=== PATIENT | female | born 2000 | race Caucasian/White ===

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

== ENCOUNTER 2020-07-23 23:51 | Emergency (ER) | payer SELFPAY ==
[2020-07-24 00:12] VITALS: BP 148/95; TEMP 97.5; O2SAT 99
--- NOTE | 2020-07-24 00:30 | ED.PDOC ---
History of Present Illness - General Chief Complaint: General Time Seen by Provider: 07/24/20 00:21 Source: patient Exam Limitations: other - PATIENT UNCOOPERATIVE WITH EXAM, OBVIOUSLY TRYING TO CREAT FALSE FINDINGS ON EXAM, ONE MOMENT ACTING ATAXIC AND ANOTHER HAVING NO DIFFICULTY AT ALL WITH BALANCE. UNCOOPERATIVE WITH EXAM AND ADMITS TO EXAGERATION OF HER SYMPTOMS. - History of Present Illness Timing/Duration: episodic, waxing and waning Allergies/Adverse Reactions: Allergies Aspirin Allergy (Verified 10/01/19 00:44) Home Medications: Ambulatory Orders NK 10/01/19 Review of Systems - Review of Systems Review of Systems: 07/24/20 00:37 GENERALLY POSITIVE ROS, UNRELIABLE. Past Medical History (General) - Patient Medical History Hx Seizures: No Hx Stroke: No Hx Dementia: No Hx Asthma: No Hx of COPD: No Hx Cardiac Disorders: No Hx Congestive Heart Failure: No Hx Pacemaker: No Hx Hypertension: No Hx Thyroid Disease: No Hx Diabetes: No Hx Gastroesophageal Reflux: No Hx Renal Disease: No Hx of HIV: No Hx MRSA: No - Vaccination History Hx Tetanus, Diphtheria Vaccination: No Hx Influenza Vaccination: No Hx Pneumococcal Vaccination: No Immunizations Up to Date: No - Social History Hx Tobacco Use: No Hx Alcohol Use: No Hx Substance Use: No Hx Substance Use Treatment: No Hx Depression: Yes - Female History Patient : - unknown Family Medical History - Family History Father Family History: Unknown Physical Exam - Physical Exam General Appearance: Alert, No apparent distress, Obese, Well Developed, Well Groomed, Well Hydrated, Well Nourished Eye Exam: bilateral normal, bilateral abnormal EOM, bilateral abnormal pupil, bilateral conjunctivae pale, bilateral scleral icterus, bilateral other ENT Exam: normal ENT inspection, hearing grossly normal, pharynx normal Neck: non-tender, full range of motion, supple, normal inspection, trachea midline, limited range of motion Respiratory: chest non-tender, lungs clear, normal breath sounds, no respiratory distress Cardiovascular/Chest: normal peripheral pulses, regular rate, rhythm, no edema, no gallop, no JVD, no murmur Gastrointestinal/Abdominal: non tender, soft, no organomegaly 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 Copy, Patient Portal Self Enrollment Instructions: Generalized Anxiety Disorder, Somatization Disorder Home Medications: Ambulatory Orders NK 10/01/19 Additional Instructions: PLEASE CONTACT [facility] ON SUNDAY AND SEE IF THEY CAN HELP YOU GET YOUR MEDICATIONS FILLED.
== END 2020-07-24 00:38 | disposition home or self-care (01) ==
LOC: ER 23:51
DX: F41.9 Anxiety disorder, unspecified (principal); F32.9 Major depressive disorder, single episode, unspecified; Z76.5 Malingerer [conscious simulation]; Z88.6 Allergy status to analgesic agent

== ENCOUNTER 2020-07-24 13:54 | Emergency (ER) | payer SELFPAY ==
[2020-07-24] MEDS ORDERED: IBUPROFEN 200 MG TAB PO ONE (14:18)
--- NOTE | 2020-07-24 14:26 | ED.PDOC ---
History of Present Illness - General Chief Complaint: Behavioral / Psych Stated Complaint: confusion, dizzy, headache, suicidal thoughts Time Seen by Provider: 07/24/20 14:09 Additional Information: Patient is a 19-year-old female who presents to the ED with chief complaint of anxiety and confusion. Patient indicates she suffers from PTSD and has not taken her psychiatric medications for "27 hours". Patient complains of a mild frontal headache, anxiety, jitteriness. She denies fever, chills, nausea, vomiting. When asked patient indicates that she does have suicidal ideation with thoughts of jumping off a bridge. Patient suffers from chronic depression and has cut and burned herself in the past but indicates she has done nothing recently to hurt herself including any ingestion. She denies use of drugs and alcohol. - History of Present Illness Allergies/Adverse Reactions: Allergies Aspirin Allergy (Verified 07/24/20 14:21) Home Medications: Ambulatory Orders Aripiprazole [Abilify] 5 mg PO 07/24/20 Buspirone HCl [Buspirone Hydrochloride] 10 mg PO 07/24/20 Escitalopram [Lexapro] 10 mg PO 07/24/20 Review of Systems - Review of Systems Constitutional: States: no symptoms reported. Denies: chills, fever EENTM: States: blurred vision Respiratory: States: no symptoms reported. Denies: cough, short of breath Cardiology: States: no symptoms reported. Denies: chest pain, palpitations Gastrointestinal/Abdominal: States: nausea. Denies: abdominal pain, vomiting Musculoskeletal: States: no symptoms reported Neurological: States: anxiety, depressed, emotional problems All other Systems: Reviewed and Negative Past Medical History (General) - Patient Medical History Hx Seizures: No Hx Stroke: No Hx Dementia: No Hx Asthma: No Hx of COPD: No Hx Cardiac Disorders: No Hx Congestive Heart Failure: No Hx Pacemaker: No Hx Hypertension: No Hx Thyroid Disease: No Hx Diabetes: No Hx Gastroesophageal Reflux: No Hx Renal Disease: No Hx of HIV: No Hx MRSA: No - Vaccination History Hx Tetanus, Diphtheria Vaccination: No Hx Influenza Vaccination: No Hx Pneumococcal Vaccination: No - Social History Hx Tobacco Use: No Hx Alcohol Use: No Hx Substance Use: No Hx Substance Use Treatment: No Hx Depression: Yes - Female History Patient : - unknown Family Medical History - Family History Father Family History: Unknown Physical Exam - Physical Exam General Appearance: Alert, Anxious, No apparent distress, Obese Eyes, Ears, Nose, Throat Exam: pharynx normal Neck: supple, normal inspection Respiratory: lungs clear, normal breath sounds, no respiratory distress Cardiovascular/Chest: normal peripheral pulses, no edema, tachycardia Gastrointestinal/Abdominal: non tender, soft Extremities Exam: normal range of motion, no evidence of injury Neurological: alert, oriented x 3, other - cooperative Behavior/Eye Contact/Speech: cooperative, good eye contact Thoughts/Hallucinations: no apparent hallucination, other - Positive suicidal ideation with a plan Progress - Progress Progress: 07/24/20 16:19 Patient's labs are unremarkable. She has spoken with the clinical education manager who has arranged for her to be transferred to the crisis respite unit for inpatient care. Patient's mother will come to the ED to pick her up and transport her to the facility. Patient is happy with this plan. Departure - Departure Clinical Impression: Suicidal ideation Time of Disposition: 16:20 Disposition: Discharge to Home or Self Care Condition: Fair Departure Forms: ED Discharge - Pt. Copy, Patient Portal Self Enrollment Instructions: DI for Psychosis Home Medications: Ambulatory Orders Aripiprazole [Abilify] 5 mg PO 07/24/20 Buspirone HCl [Buspirone Hydrochloride] 10 mg PO 07/24/20 Escitalopram [Lexapro] 10 mg PO 07/24/20 Comments: With your mother, drive directly to the crisis respite unit upon discharge from the ED without stop for continued mental health care and treatment.
[2020-07-24 16:42] VITALS: BP 117/78; TEMP 97.4; O2SAT 99
== END 2020-07-24 16:28 | disposition home or self-care (01) ==
LOC: ER 13:54
DX: R45.851 Suicidal ideations (principal); F41.9 Anxiety disorder, unspecified; R41.0 Disorientation, unspecified; F32.9 Major depressive disorder, single episode, unspecified; R11.0 Nausea; Z20.828 Contact with and (suspected) exposure to other viral communicable diseases; Z79.899 Other long term (current) drug therapy; Z88.6 Allergy status to analgesic agent; Z91.5 Personal history of self-harm